=== PATIENT | female | born 1995 | race Caucasian/White ===

== ENCOUNTER 2017-08-19 13:41 | Emergency (ER) | payer SELFPAY, MEDICAID ==
[2017-08-19] MEDS: LORAZEPAM 1 MG TAB PO (17:06)
[2017-08-19] MEDS: morphine (ER) 15 MG TAB PO (17:07)
== END 2017-08-19 18:16 | disposition home or self-care (01) ==
LOC: FTE 13:41
DX: L05.01 Pilonidal cyst with abscess (principal)
CPT/HCPCS: 10080; 99284-25

== ENCOUNTER 2017-08-21 07:44 | Emergency (ER) | payer MEDICAID | END 2017-08-21 09:07 | disposition home or self-care (01) | LOC: FTE 07:44 | DX: Z48.01 Encounter for change or removal of surgical wound dressing (principal); L05.01 Pilonidal cyst with abscess | CPT/HCPCS: 99281; Z7502 ==

== ENCOUNTER 2019-03-13 11:21 | Emergency (ER) | payer OTHER ==
[2019-03-13 13:07] LABS: ADD MAN DIFF? NO
[2019-03-13 13:12] LABS: WHITE BLOOD COUNT 12.4 10^3/ul (4.8-10.8)
[2019-03-13 13:12] LABS: BASOPHILS % 0.3 % (0.0-2.0); EOSINOPHILS # 0.1 10^3/ul (0.0-0.5); EOSINOPHILS % 0.8 % (0.0-7.0); HEMOGLOBIN 13.6 g/dl (12.0-16.0); LYMPHOCYTES % 24.2 % (15.0-51.0); MEAN CORPUSCULAR HEMOGLOBIN 31.4 pg (29.0-33.0); MEAN CORPUSCULAR VOLUME 92.4 fl (82.0-101.0); MEAN PLATELET VOLUME 10.2 fl (7.4-10.4); MONOCYTE # 0.7 10^3/ul (0.3-0.9); MONOCYTES % 5.6 % (0.0-11.0); NEUTROPHIL # 8.5 10^3/ul (1.6-7.5); NEUTROPHILS % 68.8 % (39.0-77.0); PLATELET COUNT 266 10^3/UL (140-415); RED BLOOD COUNT 4.33 10^6/ul (4.20-5.40); RED CELL DISTRIBUTION WIDTH 12.1 % (11.5-14.5)
== END 2019-03-13 14:10 | disposition home or self-care (01) ==
LOC: E/R 11:21
DX: O26.892 Other specified pregnancy related conditions, second trimester (principal); R06.02 Shortness of breath; Z3A.18 18 weeks gestation of pregnancy
CPT/HCPCS: 36415; 85025; 93005; 99284-25